=== PATIENT | male | born 1985 | race Caucasian/White ===

== ENCOUNTER 2022-08-14 06:19 | Emergency (ER) | payer OTHER ==
[2022-08-14 06:33] VITALS: BP 145/82; PULSE 90; RESP 18; TEMP 98.1; BMI 38.9
== END 2022-08-14 08:55 | disposition home or self-care (01) ==
LOC: JER 06:19
DX: M79.602 Pain in left arm (principal); W10.9XXA Fall (on) (from) unspecified stairs and steps, initial encounter
CPT/HCPCS: 73030-TC-LT-FY; 73060-TC-LT-FY; 99284-25